=== PATIENT | female | born 1960 | race Caucasian/White ===

== ENCOUNTER → 2018-06-02 10:23 | Outpatient (CLI) | payer OTHER, SELFPAY ==
--- NOTE | 2018-06-02 10:27 | XR_ITS ---
XR foot wt bearing RT 3V HISTORY: ITS.REASON: PAIN ORDERING PHYSICIAN: Shazia Pineda DPM PATIENT AGE: 58 years COMPARISON: None FINDINGS: No fracture or dislocation. No lytic or blastic change. There is normal mineralization.. The joint spaces are well-preserved. No significant degenerative/arthritic changes. There are some subarticular cystic changes of the distal aspect of the proximal phalanx of the fifth toe. No other cystic or erosive changes evident. IMPRESSION: There are 2 small subarticular cystic areas at the distal aspect of the proximal phalanx of the fifth toe. These are of questionable significance and etiology possibly degenerative in nature. Please correlate as to the area of patient's pain regarding significance. Otherwise negative right foot
--- NOTE | 2018-06-02 10:27 | XR_ITS ---
XR foot wt bearing LT 3V HISTORY: ITS.REASON: PAIN ORDERING PHYSICIAN: Shazia Pineda DPM PATIENT AGE: 58 years COMPARISON: None FINDINGS: No fracture or dislocation. No lytic or blastic change. There is normal mineralization.. The joint spaces are well-preserved. No significant degenerative/arthritic changes. No erosive changes evident. There is normal alignment. No evidence of pes planus IMPRESSION: Negative left foot
== END ==
PROVIDERS: Visit Provider Podiatrist
DX: S99.921A Unspecified injury of right foot, initial encounter (principal)
CPT/HCPCS: 73630

== ENCOUNTER → 2018-06-15 14:15 | Outpatient (CLI) | payer OTHER, SELFPAY ==
--- NOTE | 2018-06-15 14:16 | CT_ITS ---
CT foot RT wo con INDICATION: Pain and bruising on top of foot, no known injury ITS.REASON: foot pain ORDERING PHYSICIAN: Shazia Pineda DPM PATIENT AGE: 58 years COMPARISON: 06/02/2018 TECHNIQUE: Axial images are obtained without contrast. Sagittal and coronal reformatted images are reviewed as well. All CT scans at the facility use one or more dose reduction, viz: automated exposure control, ma/kV adjustment per patient size (including targeted exams where dose is matched to indication, i.e. head), or iterative reconstruction technique. FINDINGS: There is a minimally displaced fracture involving the distal shaft of the third metatarsal with minimal lateral displacement of the distal fracture fragment and minimal dorsal displacement of the distal fracture fragment x 4 mm. No other acute fractures are evident. There is a faint well-circumscribed calcific density along the plantar surface of the junction of the cuboid and the base of the fourth metatarsal and inferiorly which could be due to a small avulsion injury age indeterminate. There is generalized soft tissue swelling along the plantar surface of the foot. IMPRESSION: 1. Minimally displaced fracture involves the distal shaft of the third metatarsal. 2. Small avulsion fracture at the base of the fourth metatarsal medially at the junction with cuboid. This is age indeterminate. The fracture fragment measures approximately 4 mm
== END ==
PROVIDERS: PCP Family Medicine; Visit Provider Podiatrist
DX: S93.621A Sprain of tarsometatarsal ligament of right foot, initial encounter (principal); S93.321A Subluxation of tarsometatarsal joint of right foot, initial encounter; M79.671 Pain in right foot
CPT/HCPCS: 73700

== ENCOUNTER 2021-01-28 18:01 | Emergency (ER) | payer MEDICAID, SELFPAY ==
[2021-01-28 18:05] VITALS: BP 119/72; PULSE 66; RESP 20; TEMP 37; O2SAT 98; BMI 23.1
--- NOTE | 2021-01-28 18:12 | XR_ITS ---
PROCEDURE: XR FOOT LT MIN 3V CLINICAL INDICATION: HORSE STEPPED ON FOOT Injury with pain COMPARISON: CR [id number] XR foot RT min 3V from 06/01/2018 CR [id number] XR foot wt bearing RT 3V from 06/02/2018 CR [id number] XR foot wt bearing LT 3V from 06/02/2018 FINDINGS: No fracture or dislocation. No lytic or blastic change. There is normal mineralization. The joint spaces are well-preserved. No significant degenerative/arthritic changes. No erosive changes evident. Other findings:None. IMPRESSION: No acute findings. Dictated by: Caleb Bailey MD 01/29/2021 05:38 Caleb Bailey MD in [place] 01/29/2021 05:38
--- NOTE | 2021-01-28 18:51 | HMH.EDUTC ---
[facility] [place] Clinical Impression: Right foot injury Qualifiers: Encounter type: initial encounter Qualified Code(s): S99.921A - Unspecified injury of right foot, initial encounter Disposition: Home, Self-Care Condition on Discharge: Good Instructions: How To Perform RICE (Rest, Ice, Compress, Elevate) Additional Instructions: *weight bearing as tolerated *RICE, Rest the extremity, Ice 15-20 minutes 3-4 times daily, Compress- wear the marvin wrap as discussed as much as possible to help reduce swelling and pain, Elevate the extremity when at rest *Marvin wrap/Post op shoe is for support and help control swelling, use it except in the shower. Be sure that is not to tight but not to loose either *Elevate when resting *Ibuprofen every 6-8 hours as needed for pain an inflammation. If need something more can take Tylenol in between doses of Ibuprofen to help Immediately follow up with your family doctor for new or worsening of symptoms, or no noticeable improvement over the next 3-5 days Soaking foot in warm water and epson salt may help with stiff feeling and bruising [facility] tomorrow for official Radiology reading of your Xray and further instructions Follow up with Dr Patel in Orthopedics if xray is positive for fracture Return if needed Referrals: Fang Hernandez [Primary Care Provider] - As needed Marcio Patel MD [Staff Physician] - Time of Disposition: 19:19 Medical Decision Making - Grant Inquiry Pt receiving controlled substance: No Grant was queried for this patient: No Vital Signs: 01/28/21 18:05 Temperature 98.6 F Temperature Source Oral Pulse Rate [Right Brachial] 66 Respiratory Rate 20 Blood Pressure [Right Arm] 119/72 Blood Pressure Mean [Right Arm] 87 Blood Pressure Source [Right Arm] Automatic Cuff Blood Pressure Position [Right Arm] Sitting 02 Sat by Pulse Oximetry 98 Oxygen Delivery Method Room Air Orders (Tests/Meds): ORDERS Category Date Time Status XR foot LT min 3V Stat Exams 01/28/21 18:12 Taken - Radiology Data #1 Image(s): Foot/Toes Image Reviewed: Yes I reviewed the patient's radiology image w/the ED provider Possible fracture in head of fifth metatarsal - Physician Consults Physician Consulted: Jorge Time: 19:13 Reason -: Orthopedic Eval/Care Comment/Response: Spoke with Dr Patel and he advised place patient in marvin wrap and post op shoe RICE and have Patient call back tomorrow after Radiologist reads xray and if he reads it as a fracture to follow up with him in the office [facility] [place] - General Stated complaint: horse stepped on left foot 10 days ago Time Seen by Provider: 01/28/21 18:10 Mode of Arrival: Ambulatory Source of Information: Patient Limitations: No Limitations Description of Symptoms (Recalled from Triage Doc. by RN): PATIENT C/O INJURY TO LEFT FOOT AFTER A HORSE STEPPED ON IT APPROX 10 DAYS AGO HEENT Symptoms (Recalled from RN notes): No Resp Symptoms (Recalled from RN notes): No Skin Symptoms (Recalled from RN notes): No MS Symptoms (Recalled from RN notes): Yes Functional Status (Recalled from RN notes): WNL - History of Present Illness Provider Complaint: Patient states that horse stepped on her left foot about 10 days ago State that she immediatly had some swelling and bruising States that the swelling has went down but she is still having some bruising States that she has been able to walk on it but today she noticed she was still having some bruising so she came in to get it checked - Related Data Allergies Allergy/AdvReac Type Severity Reaction Status Date / Time No Known Allergies Allergy Verified 06/02/18 09:53 - Worker's Comp Is this a Worker's Comp case?: No [facility] History - Hepatitis A Screen Drug use history?: No High risk sexual behaviors?: No History of sexually transmitted infection?: No Currently employed?: No Childcare worker?: No Do you have indoor plumbing?: Yes Do you have electricity?: Yes Attestatio
[2021-01-28 19:20] VITALS: BP 119/72; PULSE 66; RESP 20; TEMP 37; O2SAT 98
== END 2021-01-28 19:25 | disposition home or self-care (01) ==
PROVIDERS: Emergency Provider Nurse Practitioner; PCP Family Medicine
DX: S99.921A Unspecified injury of right foot, initial encounter (principal); W55.19XA Other contact with horse, initial encounter; Y92.73 Farm field as the place of occurrence of the external cause
CPT/HCPCS: 73630; 99202; G0463

== ENCOUNTER 2021-03-06 15:41 | Emergency (ER) | payer MEDICAID, SELFPAY ==
[2021-03-06 15:55] VITALS: BP 115/74; PULSE 77; RESP 17; TEMP 36.6; O2SAT 96; BMI 24.1
--- NOTE | 2021-03-06 15:58 | XR_ITS ---
PROCEDURE INFORMATION: Exam: XR Right Ribs with PA Chest Exam date and time: 03/06/2021 3:58 PM Age: 60 years old Clinical indication: Injury or trauma; Fall; Rib area; Blunt trauma (contusions or hematomas) TECHNIQUE: Imaging protocol: XR Right ribs with PA chest. Views: 3 views COMPARISON: No relevant prior studies available. FINDINGS: Airway: The airways are patent. Lungs: No acute interstitial or airspace disease. Pleural spaces: There are no pleural effusions present. There is no evidence of pneumothorax. Heart/Mediastinum: Heart is of normal size and morphology. Bones/joints: Subtle cortical irregularity and discontinuity at the lateral segment of the left 6th rib. No other acutely displaced fractures are identified. There is no evidence of dislocation. No aggressive osseous lesions. IMPRESSION: 1. Subtle cortical irregularity and discontinuity at the lateral segment of the left 6th rib, concerning for an underlying fracture of unclear time frame. Consider correlation with point tenderness at this level. 2. No other acute thoracic pathology is otherwise noted.
[2021-03-06 16:06] VITALS: BP 115/75; PULSE 77; RESP 17; TEMP 36.6; O2SAT 96
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
== END 2021-03-06 16:53 | disposition home or self-care (01) ==
PROVIDERS: Emergency Provider Nurse Practitioner Family; PCP Family Medicine
DX: R07.81 Pleurodynia (principal); W54.1XXA Struck by dog, initial encounter; Y93.01 Activity, walking, marching and hiking; Y92.014 Private driveway to single-family (private) house as the place of occurrence of the external cause
CPT/HCPCS: 71101; 99202; G0463

== ENCOUNTER 2021-07-11 20:03 | Emergency (ER) | payer MEDICAID, SELFPAY ==
[2021-07-11 20:14] VITALS: BMI 23.1
--- NOTE | 2021-07-11 20:15 | XR_ITS ---
PROCEDURE INFORMATION: Exam: XR Right Foot Exam date and time: 07/11/2021 8:15 PM Age: 61 years old Clinical indication: Injury or trauma; Fall; Blunt trauma; Foot; Right; Injury date: 07/11/2021; Injury details: Fell; Additional info: Pain trauma to RT foot bruising lateral aspect of foot TECHNIQUE: Imaging protocol: XR Right foot. Views: 3 or more views. COMPARISON: FOOTRTWO CT foot RT wo con 06/15/2018 2:31 PM FINDINGS: Bones/joints: There is a mildly diastatic fracture of the base of the right 5th metatarsal. No additional fracture identified. There is mild spurring noted along the inferior aspect of the right calcaneus. Soft tissues: Normal. IMPRESSION: Mildly diastatic fracture of the base of the right 5th metatarsal is identified.
[2021-07-11 20:34] VITALS: BP 122/70; PULSE 73; RESP 19; TEMP 36.7; O2SAT 94; BMI 22.8
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
[2021-07-11 21:17] VITALS: BP 140/80; PULSE 73; RESP 20; TEMP 36.6; O2SAT 98
== END 2021-07-11 21:26 | disposition home or self-care (01) ==
PROVIDERS: Emergency Provider Nurse Practitioner Family; PCP Family Medicine
DX: S92.354A Nondisplaced fracture of fifth metatarsal bone, right foot, initial encounter for closed fracture (principal); W18.09XA Striking against other object with subsequent fall, initial encounter; Y92.79 Other farm location as the place of occurrence of the external cause
CPT/HCPCS: 73630; 99202; G0463

== ENCOUNTER → 2021-07-14 15:17 | Outpatient (CLI) | payer MEDICAID, SELFPAY ==
[2021-07-25 21:37] LABS: 1,25 Dihydroxy Vitamin D 61 pg/mL (.); 1,25-Dihydroxy, Vitamin D-2 <10 pg/mL (.); 1,25-Dihydroxy, Vitamin D-3 61 pg/mL (.)
== END ==
PROVIDERS: Visit Provider Podiatrist
DX: S92.351S Displaced fracture of fifth metatarsal bone, right foot, sequela (principal); M85.89 Other specified disorders of bone density and structure, multiple sites
CPT/HCPCS: 36415; 82652

== ENCOUNTER → 2021-08-18 09:39 | Outpatient (CLI) | payer MEDICAID, SELFPAY ==
--- NOTE | 2021-08-18 09:42 | XR_ITS ---
PROCEDURE INFORMATION: Exam: XR Right Foot Complete; Alignment Exam date and time: 08/18/2021 9:42 AM Age: 61 years old Clinical indication: Pain; Foot; Right; Additional info: Fracture follow up TECHNIQUE: Imaging protocol: XR Right foot. Views: 3 or more views. COMPARISON: CR XR FOOT RT MIN 3V 07/11/2021 8:13 PM FINDINGS: Bones/joints: Again noted is diffuse osteopenia. Small calcaneal spur. Again noted is the fracture at the base of the 5th metatarsal. No change in alignment of the fracture fragments. The remaining osseous structures are unremarkable. No other fractures. The joint spaces are intact. No dislocations. Soft tissues: Normal. IMPRESSION: Fracture of the 5th metatarsal, unchanged in alignment.
== END ==
PROVIDERS: PCP Nurse Practitioner; Visit Provider Podiatrist
DX: M79.671 Pain in right foot (principal); T14.8XXA Other injury of unspecified body region, initial encounter
CPT/HCPCS: 73630